=== PATIENT | female | born 1960 | race African-American/Black ===

== ENCOUNTER 2017-09-08 23:53 | Observation (INO) | payer MEDICAID, OTHER ==
[~2017-09-08] VITALS: Ht 160 cm; Wt 100.0 kg
[~2017-09-08 23:53] MED LIST: ALBU17I INH; ALBU8I INH; AMLO5 PO; ASPI81TA82 PO; DILT30 PO; DUONI NEB; FURO1TAB93 PO; GABA300 PO; KCL20 PO; NITR.4 SL; NORC10TA2 PO; NOVO7030P2 SQ; NRSS SQ; PROP40TA3 PO; PROT40TA PO; SYMB160A INH; TEMA15 PO; XANA1TAB6 PO
[2017-09-08 23:59] VITALS: BP 129/82; PULSE 134; RESP 20; TEMP 98.7; O2SAT 97
[2017-09-09 00:06] VITALS: RESP 18; O2SAT 96
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
[2017-09-09] MEDS ORDERED: NOVO7030P2 SQ (00:14)
[2017-09-09] MEDS ORDERED: ADVA100A INH (00:14)
[2017-09-09] MEDS ORDERED: NOVORP2 SQ (00:14)
[2017-09-09] MEDS ORDERED: SODIUM CHLORIDE 0.9% FLUSH 10 ML FLUSH IVF PRN (00:15)
[2017-09-09] MEDS ORDERED: GABA800T PO (00:32)
[2017-09-09] MEDS ORDERED: PROT40TA PO (00:32)
[2017-09-09] MEDS ORDERED: XANA1TAB2 PO (00:32)
[2017-09-09] MEDS ORDERED: NITR1SUB3 SL (00:32)
[2017-09-09] MEDS ORDERED: ASPI-516 CHEW (00:32)
[2017-09-09] MEDS ORDERED: REST15CA PO (00:32)
[2017-09-09] MEDS ORDERED: PROP20TA3 PO (00:32)
[2017-09-09] MEDS ORDERED: FURO1TAB60 PO (00:32)
[2017-09-09] MEDS ORDERED: DILT31TA PO (00:32)
[2017-09-09] MEDS ORDERED: AMIT10TA6 PO (00:32)
[2017-09-09] MEDS ORDERED: AMLO5 PO (00:32)
--- NOTE | 2017-09-09 00:43 | RADRPT ---
EXAM DATE/TIME: 09/09/2017 00:20 [facility] COMPARISON: CHEST SINGLE AP, February 03, 2016, 5:51. INDICATIONS : Possible syncopal episode. MEDICAL HISTORY : Myocardial infarction. Congestive heart failure. Hypertension. COPD SURGICAL HISTORY : None. ENCOUNTER: Initial ACUITY: 1 day PAIN SCORE: 0/10 LOCATION: Bilateral chest FINDINGS: A single view of the chest demonstrates the lungs to be symmetrically aerated without evidence of mas s, infiltrate or effusion. The cardiomediastinal contours are unremarkable. Osseous structures are intact. CONCLUSION: No acute disease. Cornell Webster MD on September 09, 2017 at 0:41 Board Certified Radiologist. This report was verified electronically.
--- NOTE | 2017-09-09 00:44 | RADRPT ---
EXAM DATE/TIME: 09/09/2017 00:22 [facility] COMPARISON: No previous studies available for comparison. INDICATIONS : Possible syncopal episode. MEDICAL HISTORY : Myocardial infarction. Congestive heart failure. Hypertension. COPD SURGICAL HISTORY : None. ENCOUNTER: Initial ACUITY: 1 day PAIN SCORE: 1/10 LOCATION: Bilateral pelvis FINDINGS: A single frontal view of the pelvis demonstrates no evidence of fracture. The bony pelvic ring is in tact. Bony mineralization is normal. The soft tissues are intact. CONCLUSION: Unremarkable examination of the pelvis. Cornell Webster MD on September 09, 2017 at 0:42 Board Certified Radiologist. This report was verified electronically.
[2017-09-09] MEDS ORDERED: SODIUM CHLOR 0.9% 1000 ML INJ 1,000 ML IV ONE ×2 (01:00→02:45)
[2017-09-09] MEDS ORDERED: LORazepam 2 MG/ML VIAL IV PUSH ONE (01:00)
--- NOTE | 2017-09-09 01:12 | RADRPT ---
EXAM DATE/TIME: 09/09/2017 00:42 [facility] COMPARISON: No previous studies available for comparison. INDICATIONS : Dizziness. RADIATION DOSE: 42.34 CTDIvol (mGy) MEDICAL HISTORY : Cardiovascular disease. Hypertension. Chronic obstructive pulmonary disease.GERD Diabetes SURGICAL HISTORY : Appendectomy. Cholecystectomy.Tubal ligation. ENCOUNTER: Initial ACUITY: 1 day PAIN SCALE: 0/10 LOCATION: cranial TECHNIQUE: Multiple contiguous axial images were obtained of the head. Using automated exposure control and adj ustment of the mA and/or kV according to patient size, radiation dose was kept as low as reasonably a chievable to obtain optimal diagnostic quality images. DICOM format image data is available electro nically for review and comparison. FINDINGS: CEREBRUM: The ventricles are normal for age. No evidence of midline shift, mass lesion, hemorrhage or acute in farction. No extra-axial fluid collections are seen. POSTERIOR FOSSA: The cerebellum and brainstem are intact. The 4th ventricle is midline. The cerebellopontine angle i s unremarkable. EXTRACRANIAL: The visualized portion of the orbits is intact. SKULL: The calvaria is intact. No evidence of skull fracture. CONCLUSION: Normal examination. Cornell Webster MD on September 09, 2017 at 1:07 Board Certified Radiologist. This report was verified electronically.
[2017-09-09 01:28] LABS: AUTOMATED NEUTROPHIL # 3.9 TH/MM3 (1.8-7.7); BASOPHIL # 0.1 TH/MM3 (0-0.2); BASOPHIL % 1.1 % (0.0-2.0); EOSINOPHIL # 0.2 TH/MM3 (0-0.4); EOSINOPHIL % 2.4 % (0.0-4.0); HEMATOCRIT 41.3 % (35.0-46.0); HEMOGLOBIN 13.9 GM/DL (11.6-15.3); LYMPH % 52.9 % (9.0-44.0); LYMPHOCYTE # 5.5 TH/MM3 (1.0-4.8); MEAN CELL VOLUME 87.5 FL (80.0-100.0); MEAN CORPUSCULAR HEMOGLOBIN 29.5 PG (27.0-34.0); MEAN CORPUSCULAR HGB CONC 33.7 % (32.0-36.0); MONO % 6.2 % (0.0-8.0); MONOCYTE # 0.6 TH/MM3 (0-0.9); NEUT % 37.4 % (16.0-70.0); PLATELET COUNT 511 TH/MM3 (150-450); RED BLOOD COUNT 4.73 MIL/MM3 (4.00-5.30); RED CELL DISTRIBUTION WIDTH 14.4 % (11.6-17.2); WHITE BLOOD COUNT 10.4 TH/MM3 (4.0-11.0)
[2017-09-09 01:45] LABS: BICARBONATE 20.3 MEQ/L (21.0-32.0); BLOOD UREA NITROGEN 9 MG/DL (7-18); CALCIUM 9.1 MG/DL (8.5-10.1); CHLORIDE 110 MEQ/L (98-107); CREATININE 0.67 MG/DL (0.50-1.00); GLOMERULAR FILTRATION RATE 111 ML/MIN (>89); GLUCOSE,RANDOM 126 MG/DL (74-106); MAGNESIUM 1.9 MG/DL (1.5-2.5); SODIUM (NA) 141 MEQ/L (136-145)
[2017-09-09 01:49] LABS: TROPONIN I LESS THAN 0.02 NG/ML (0.02-0.05)
[2017-09-09 01:56] LABS: INTERNATIONAL NORMALIZED RATIO 1.1 RATIO; PROTHROMBIN TIME - PATIENT 11.2 SEC (9.8-11.6)
[2017-09-09 02:06] LABS: LYMPHOCYTES 61 % (9-44); MONOCYTES 4 % (0-8); NEUTROPHIL # MANUAL DIFF 3.5 TH/MM3 (1.8-7.7); POLYS (SEG NEUTROPHILS) 34 % (16-70)
[2017-09-09 02:26] VITALS: BP 118/73; PULSE 110; RESP 16; O2SAT 100
[2017-09-09] MEDS ORDERED: SODIUM CHLOR 0.9% 1000 ML INJ 1,000 ML IV SCH (02:52)
[2017-09-09] MEDS ORDERED: LORazepam 1 MG TAB PO PRN (03:00)
[2017-09-09] MEDS ORDERED: LORazepam 2 MG TAB PO PRN (03:00)
[2017-09-09] MEDS ORDERED: SODIUM CHLORIDE 0.9% FLUSH 10 ML FLUSH IV FLUSH PRN (03:00)
[2017-09-09] MEDS ORDERED: FLUMAZENIL 0.5 MG/5 ML VIAL IV PUSH PRN (03:00)
[2017-09-09] MEDS ORDERED: DEXTROSE 50% IN WATER 50 ML VIAL(D50) IV PUSH PRN (03:00)
[2017-09-09] MEDS ORDERED: LORazepam 2 MG/ML VIAL IV PUSH PRN ×4 (03:00)
[2017-09-09] MEDS ORDERED: GLUCAGON 1 MG/ML VIAL OTHER PRN (03:00)
[2017-09-09 04:24] VITALS: BP 129/75; PULSE 110; PULSE 94; RESP 16; TEMP 98; O2SAT 99
[2017-09-09] MEDS ORDERED: POTASSIUM CHLORIDE 20 MEQ CONTROLLED RELEASE TAB PO ONE (06:00)
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
[2017-09-09 06:59] VITALS: PULSE 111
[2017-09-09 08:00] VITALS: BP 130/88; PULSE 127; RESP 20; TEMP 98.1; O2SAT 99
[2017-09-09] MEDS ORDERED: INSULIN ASPART SUPPLEMENTAL SCALE SQ SCH (08:00)
[2017-09-09] MEDS ORDERED: PANTOPRAZOLE SOD 40 MG DELAYED RELEASE TAB PO SCH (09:00)
[2017-09-09] MEDS ORDERED: FUROSEMIDE 40 MG TAB PO SCH (09:00)
[2017-09-09] MEDS ORDERED: SODIUM CHLORIDE 0.9% FLUSH 10 ML FLUSH IV FLUSH SCH (09:00)
[2017-09-09] MEDS ORDERED: INSULIN HUMAN NPH/R 70/30 1,000 UNITS/10 ML VIAL SQ SCH ×2 (09:00)
[2017-09-09] MEDS ORDERED: DILTIAZEM HCL 90 MG TAB PO SCH (09:00)
[2017-09-09] MEDS ORDERED: PROPRANOLOL HCL 20 MG TAB PO SCH (09:00)
[2017-09-09] MEDS ORDERED: ASPIRIN 81 MG CHEW TAB CHEW SCH (09:00)
[2017-09-09] MEDS ORDERED: amLODIPine BESYLATE 5 MG TAB PO SCH (09:00)
[2017-09-09] MEDS ORDERED: GABAPENTIN 400 MG CAP PO SCH (09:00)
[2017-09-09] MEDS ORDERED: BUDESONIDE-FORMOTEROL 80/4.5 MCG INHALER INH SCH (09:00)
--- NOTE | 2017-09-09 09:41 | RADRPT ---
EXAM DATE/TIME: 09/09/2017 08:55 [facility] COMPARISON: No previous studies available for comparison. INDICATIONS : Syncope. MEDICAL HISTORY : Hypercholesterolemia. Chronic obstructive pulmonary disease. Gastroesophageal reflux disease. Myocard ial infarction. Congestive heart failure. Hypertension. Gallbladder disease. Fibromyalgia. Rheum atoid arthritis. Diabetes. SURGICAL HISTORY : Appendectomy. Cholecystectomy. section. Tubal ligation. ENCOUNTER: Initial ACUITY: 1 day PAIN SCORE: 7/10 LOCATION: Bilateral neck PEAK SYSTOLIC VELOCITIES (cm/sec): ICA/CCA RATIO: Right: 1.0 Left: 0.8 ICA: Right: 62.9 Left: 64.6 CCA: Right: 65.9 Left: 80.7 ECA: Right: 104.3 Left: 86.5 VERTEBRAL: Right: 45.1 antegrade Left: 54.8 antegrade Elevated flow velocities and ICA/CCA ratios have been found to correlate with increased degrees of vessel stenosis, calculated as percentage of diameter relative to a normal segment of distal ICA/CCA FINDINGS: RIGHT CAROTID: No significant stenosis is visualized. The waveforms are within normal limits. LEFT CAROTID: No significant stenosis is visualized. The waveforms are within normal limits. VERTEBRAL ARTERIES: Antegrade flow is seen in both vertebral arteries. MISCELLANEOUS: None. CONCLUSION: Limited exam otherwise negative for stenosis. Jacob Aly MD FACR on September 09, 2017 at 9:39 Board Certified Radiologist. This report was verified electronically.
--- NOTE | 2017-09-09 11:23 | HHI.DCPOC ---
Discharge Care Plan Diagnosis: (1) Syncope (2) Alcohol abuse (3) Obesity (4) Diabetes Goals to Promote Your Health * To prevent worsening of your condition and complications * To maintain your health at the optimal level Directions to Meet Your Goals Take your medications as prescribed Follow your dietary instruction Follow activity as directed Keep your appointments as scheduled Take your immunizations and boosters as scheduled If your symptoms worsen call your PCP, if no PCP go to Urgent Care Center or Emergency Room Smoking is Dangerous to Your Health. Avoid second hand smoke Call the 24-hour hour crisis hotline for domestic abuse at Darrion Odom MD Sep 09, 2017 11:23
--- NOTE | 2017-09-09 11:24 | HHI.PR ---
Subjective Remarks Patient reports she is feeling great. She attributes the episode to a very stressful situation with her son. She wants to go home. Objective Vitals Vital Signs Date Time Temp Pulse Resp B/P (MAP) Pulse Ox O2 Delivery O2 Flow Rate FiO2 09/09/17 08:00 98.1 127 20 130/88 (102) 99 09/09/17 06:59 111 09/09/17 04:24 110 09/09/17 04:24 98.0 94 16 129/75 (93) 99 09/09/17 03:32 09/09/17 02:26 110 16 118/73 (88) 100 Room Air 09/09/17 00:06 18 96 Room Air 09/09/17 00:06 132 18 96 Room Air 09/08/17 23:59 98.7 134 20 129/82 (98) 97 Result Diagram: 09/09/17 0025 09/09/17 0025 Imaging Last Impressions Head CT 09/09/17 0003 Signed Impressions: Service Date/Time: Saturday, September 09, 2017 00:42 - CONCLUSION: Normal examination. Cornell Webster MD Chest X-Ray 09/09/17 0003 Signed Impressions: Service Date/Time: Saturday, September 09, 2017 00:20 - CONCLUSION: No acute disease. Cornell Webster MD Pelvis X-Ray 09/09/17 0000 Signed Impressions: Service Date/Time: Saturday, September 09, 2017 00:22 - CONCLUSION: Unremarkable examination of the pelvis. Cornell Webster MD Carotid Artery Ultrasound 09/09/17 0000 Signed Impressions: Service Date/Time: Saturday, September 09, 2017 08:55 - CONCLUSION: Limited exam otherwise negative for stenosis. Jacob Aly MD FACR Objective Remarks GENERAL: This is a well-nourished, well-developed patient, in no apparent distress. CARDIOVASCULAR: Normal rate and regular rhythm without murmurs, gallops, or rubs. RESPIRATORY: Good respiratory efforts. Breath sounds equal and clear to auscultation bilaterally. GASTROINTESTINAL: Abdomen soft, non-tender, non-distended. Normal active bowel sounds MUSCULOSKELETAL: Extremities without cyanosis, or edema. NEURO: Alert & Oriented x4 to person, place, time, situation. Moves all ext x4 PSYCH: Appropriate mood and affect. A/P Assessment and Plan 57-year-old female who reportedly had a brief syncopal episode after she was handcuffed. Patient attributed that to extreme exacerbation of pain at the time. Carotid ultrasound is unremarkable. Head CT is unremarkable. Brief episode might have been related to a vasovagal event. The patient was also intoxicated with alcohol. The patient is feeling well and wants to go home. She is medically stable for discharge home. She is advised to follow-up outpatient with her title i assistant as scheduled. Discharge Planning Discharge home in stable condition Activity: Regular as tolerated. Advised patient to stop drinking alcohol. She was advised to afford it stressful situations. Meds: Per med rec Diet: Heart healthy Follow-up: With PCP Darrion Odom MD Sep 09, 2017 11:24
[2017-09-09 11:30] VITALS: BP 142/83; PULSE 95; RESP 20; TEMP 98; O2SAT 99
[2017-09-09] MEDS ORDERED: HEPARIN SODIUM - SQ 10,000 UNITS/ML VIAL SQ SCH (14:00)
--- NOTE | 2017-09-09 17:38 | ECHRPT ---
Indication: Heart Failure CONCLUSIONS Normal left ventricular size. Wall thickness is normal. The left ventricular systolic function is low normal with an estimated ejection fraction in the rang e of 50%. BP: / HR: Rhythm: MEASUREMENTS (Male / Female) Normal Values Technical Quality:Fair 2D ECHO LV Diastolic Diameter PLAX 4.4 cm 4.2 - 5.9 / 3.9 - 5.3 cm LV Systolic Diameter PLAX 3.6 cm IVS Diastolic Thickness 0.9 cm 0.6 - 1.0 / 0.6 - 0.9 cm LVPW Diastolic Thickness 0.8 cm 0.6 - 1.0 / 0.6 - 0.9 cm LV Relative Wall Thickness 0.4 LA Systolic Diameter LX 3.3 cm 3.0 - 4.0 / 2.7 - 3.8 cm DOPPLER Mitral E Point Velocity 88.8 cm/s Mitral A Point Velocity 105.0 cm/s Mitral E to A Ratio 0.8 TR Peak Velocity 159.0 cm/s TR Peak Gradient 10.1 mmHg FINDINGS LEFT VENTRICLE Normal left ventricular size. Wall thickness is normal. The left ventricular systolic function is low normal with an estimated ejection fraction in the rang e of 50%. RIGHT VENTRICLE Normal right ventricular size and systolic function. LEFT ATRIUM The left atrial size is normal. RIGHT ATRIUM The right atrial size is normal. ATRIAL SEPTUM Normal atrial septal thickness without atrial level shunting by limited color doppler interrogation. AORTA The aortic root and proximal ascending aorta are normal in size on limited imaging. MITRAL VALVE Structurally normal mitral valve. No mitral valve stenosis or regurgitation. AORTIC VALVE Trileaflet aortic valve. No aortic valve stenosis or regurgitation. TRICUSPID VALVE Structurally normal tricuspid valve. No tricuspid valve stenosis or regurgitation. PULMONARY VALVE The pulmonary valve is not well visualized. VESSELS The inferior vena cava is normal in size. PERICARDIUM No pericardial effusion. Sonu Cisneros MD, FACC (Electronically Signed) Final Date:09 September 2017 17:37
[2017-09-09] MEDS ORDERED: AMITRIPTYLINE HCL 10 MG TAB PO SCH (21:00)
--- NOTE | 2017-09-09 21:34 | EKG ---
Date Performed: 09/09/2017 Time Performed: 00:09:43 PTAGE: 57 years EKG: SINUS TACHYCARDIA WITH OCCASIONAL VENTRICULAR PREMATURE COMPLEXES LOW QRS VOLTAGE IN PRECOR DIAL LEADS POSSIBLE ANTERIOR MYOCARDIAL INFARCTION ABNORMAL RHYTHM ECG PREVIOUS TRACING : 02/02/2016 13.03 Compared to prior tracing no significant change DOCTOR: Sonu Cisneros Interpretating Date/Time 09/09/2017 21:32:38
== END 2017-09-09 12:03 | disposition home or self-care (01) ==
LOC: NEPC 23:53 → NEDA 09-09 02:52 → NEPFCDU 09-09 03:27
PROVIDERS: ADMIT Family Medicine; ATTEND Family Medicine
DX: R55 Syncope and collapse (principal); F10.10 Alcohol abuse, uncomplicated; R79.89 Other specified abnormal findings of blood chemistry; I11.0 Hypertensive heart disease with heart failure; I50.9 Heart failure, unspecified; J44.9 Chronic obstructive pulmonary disease, unspecified; E87.6 Hypokalemia; E78.5 Hyperlipidemia, unspecified; E11.9 Type 2 diabetes mellitus without complications; K21.9 Gastro-esophageal reflux disease without esophagitis; M06.9 Rheumatoid arthritis, unspecified; E66.9 Obesity, unspecified; M46.90 Unspecified inflammatory spondylopathy, site unspecified; M79.7 Fibromyalgia; F17.210 Nicotine dependence, cigarettes, uncomplicated; Z68.39 Body mass index [BMI] 39.0-39.9, adult
CPT/HCPCS: 70450; 71010; 72170; 80048; 80307; 82948; 83735; 83880; 84484; 85007; 85027; 85610; 85730; 93005; 93306; 93880; 96361; 96372; 96374; 99285; G0378; J1815; J2060; J7030